=== PATIENT | male | born 2000 | race Two or more races ===

== ENCOUNTER 2021-11-17 16:32 | Emergency (ER) | payer OTHER ==
[2021-11-17 17:17] VITALS: BP 115/65; PULSE 102; TEMP 99.7; BMI 24.3
[2021-11-17] MEDS ORDERED: ACETAMINOPHEN 500 MG TABLET (FP) PO ONE (17:42)
[2021-11-17] MEDS ORDERED: ACETAMINOPHEN 325 MG TABLET (FP) ONE (17:49)
[2021-11-18 13:08] LABS: SARS-CoV-2 NAA Not Detected (Not Detected)
== END 2021-11-17 18:00 | disposition home or self-care (01) ==
LOC: JER 16:32
DX: J06.9 Acute upper respiratory infection, unspecified (principal)
CPT/HCPCS: 87804; 99281-25; C9803; U0003; U0005